=== PATIENT | male | born 1995 | race Caucasian/White ===

== ENCOUNTER 2023-01-11 08:02 | Emergency (ER) | payer OTHER, SELFPAY ==
--- NOTE | ~2023-01-11 | XR_ITS ---
XR lumbar spine 2-3V DATE: 01/11/2023 08:33 INDICATION: Low back pain after doing squats in gym TECHNIQUE: AP, lateral, coned lateral lumbosacral views COMPARISON: None FINDINGS: Normal alignment of the lumbar spine. No fracture or bone destruction or spondylolisthesis. The lumbar pedicles are intact. Lumbar and lumbosacral interspaces appear well preserved. The sacroi liac joints are intact. IMPRESSION: No significant abnormality Reviewed, dictated and finalized at location A. [employer] IMPRESSION: No significant abnormality
--- NOTE | 2023-01-11 08:10 | ED.BACK ---
HPI - Back Pain/Injury General Chief Complaint: Back Pain/Injury Stated Complaint: LOW BACK PAIN Time Seen by Provider: 01/11/23 08:18 Source: patient, RN notes reviewed and old records reviewed Mode of arrival: ambulatory Limitations: no limitations History of Present Illness HPI Narrative: 27 year old male who presents to [facility] care with complaints of low back pain which began yesterday after he was doing a squat at the gym yesterday. Patient reports that he felt a sharp burn to his lower back at that time. He reports no radiation of pain to his legs, no problems passing urine or stools, no saddle paraesthesia, denies any tingling or numbness to his legs or feet. Patient does have some low back midline tenderness on palpation, no SI pain noted on exam.patient has been taking Aleve with minimal decrease in his pain, last dose this morning around 0700. MD elicited complaint: back pain Onset (ago): day(s) (yesterday) Pain scale (0-10): 8 Similar Symptoms Previously: No Quality: sharp and dull Location: lumbar spine Work related injury: No Related Data Allergies Allergy/AdvReac Type Severity Reaction Status Date / Time sweet potato Allergy Other Verified 01/11/23 08:14 Review of Systems Review of Systems: CONSTITUTIONAL: Denies fever, chills, or sweats. CARDIOVASCULAR: Denies chest pain, palpitations, or edema. RESPIRATORY: Denies cough or dyspnea. GASTROINTESTINAL: Denies abdominal pain, nausea, vomiting, or diarrhea. GENITOURINARY: Denies dysuria or hematuria. SKIN: Denies rash or itching. MUSCULOSKELETAL: Reports lumbar back pain. Joint pain or myalgia. NEUROLOGIC: Denies headache, numbness, or weakness. All systems reviewed & are unremarkable except as noted in HPI and below [facility] Surgical History Surgical History (Updated 01/11/23 @ 08:18 by Eva Gilliam NP) History of tonsillectomy Social History Social History (Updated 01/11/23 @ 08:28 by Eva Gilliam NP) Smoking status: Never smoker Alcohol intake: current Alcohol use details: social Substance use type: does not use Living arrangements: alone Gender identity (if verbalized by the patient): Male Comments At time of signature, agree with nursing past medical, surgical, social and family history. There is no relevant family history pertinent to the presenting complaint Exam Narrative: GENERAL: Well-appearing, well-nourished, and in no acute distress. HEAD: Normocephalic, atraumatic. EYES: PERRLA and EOMI. NECK: Supple. No lymphadenopathy. CHEST: Clear to auscultation. No respiratory distress. HEART: Regular rate and rhythm. Distal pulses palpable and equal, cap refill <3 seconds ABDOMEN: Soft, nontender, nondistended, normal active bowel sounds, no palpable or pulsatile masses. No CVA tenderness MUSCULOSKELETAL: Normal range of motion and strength in all extremities; 5/5 strength with hip flexion and extension, dorsiflexion and extension, knee flexion and extension, plantar flexion and extension. Normal sensation in dermatomal distributions with sensitivity to light touch and pain. Noted midline lumbar back tenderness to palpation. No paraspinal tenderness. Transfers from lying to sitting to standing with some discomfort voiced when changing positions. SKIN: Warm, dry, no rash. No ecchymosis, erythema, open wounds to back. NEURO: No focal deficits. Alert and oriented x3. Reflexes intact. Normal gait. PSYCH: Normal mood and affect Course Course Emergency Course: Patient is aware of diagnosis, understands and agrees to treatment plan. Anticipatory guidance given. Patient agrees to follow-up as directed and is aware of reasons to seek care at the emergency department. Portions of this record may have been created with voice recognition software Level of Care: Express Care Visit Vital Signs Vital signs: Vital Signs Temperature 36.6 C 01/11/23 08:12 Pulse Rate 94 01/11/23 08:12 Respiratory Rate 16 02
[2023-01-11 08:12] VITALS: BP 146/105; PULSE 94; RESP 16; TEMP 36.6; O2SAT 100
== END 2023-01-11 08:55 | disposition home or self-care (01) ==
PROVIDERS: Emergency Provider Registered Nurse; PCP Internal Medicine
DX: S39.012A Strain of muscle, fascia and tendon of lower back, initial encounter (principal); X50.9XXA Other and unspecified overexertion or strenuous movements or postures, initial encounter; Y92.39 Other specified sports and athletic area as the place of occurrence of the external cause
CPT/HCPCS: 72100; 99203; G0463

== ENCOUNTER 2024-10-15 17:47 | Emergency (ER) | payer OTHER, SELFPAY ==
[2024-10-15 17:53] VITALS: BP 136/92; PULSE 97; RESP 16; TEMP 36.6; O2SAT 99
--- NOTE | 2024-10-15 17:59 | ED_ITS ---
HPI - Skin/Abscess/Foreign Bdy General Chief complaint: Skin/Abscess/Foreign Body Stated complaint: Ingrown Hair Time Seen by Provider: 10/15/24 17:59 Source: patient Mode of arrival: ambulatory Limitations: no limitations History of Present Illness HPI narrative: 29 yo M presents with redness and swelling to suprapubic area. Draining. Has been applying PRID for about 4 days. afebrile. Uses electric razor to shave pubic hair. Has been doing this for my whole life . Has never had infection. All systems reviewed and negative except as noted above. Related Data Allergies Allergy/AdvReac Type Severity Reaction Status Date / Time sweet potato Allergy Other Verified 10/15/24 17:59 Review of Systems Review of Systems: CONSTITUTIONAL: Denies fever, chills, or sweats. EYES: Denies visual changes, redness, or discharge. ENT: Denies rhinorrhea, congestion, sore throat, or otalgia. CARDIOVASCULAR: Denies chest pain, palpitations, or edema. RESPIRATORY: Denies cough or dyspnea. GASTROINTESTINAL: Denies abdominal pain, nausea, vomiting, or diarrhea. GENITOURINARY: Denies dysuria or hematuria. SKIN: Denies rash or itching. Reports swelling, pain, redness to pubic area. MUSCULOSKELETAL: Denies back pain, joint pain, or myalgia. NEUROLOGIC: Denies headache, numbness, or weakness. PSYCHIATRIC: Denies anxiety or depression. All other systems reviewed are negative, except as documented in HPI. [facility] Surgical History Surgical History (Updated 01/11/23 @ 08:18 by Eva Gilliam NP) History of tonsillectomy Social History Social History (Updated 01/11/23 @ 08:28 by Eva Gilliam NP) Smoking status: Never smoker Alcohol intake: current Alcohol use details: social Substance use type: does not use Living arrangements: alone Gender identity (if verbalized by the patient): Male Comments At time of signature, agree with nursing past medical, surgical, social and family history. There is no relevant family history pertinent to the presenting complaint. Exam Narrative: GENERAL: This is a well-nourished, well-developed patient, in no apparent distress. HEAD: normocephalic, atraumatic. EYES: PERRL. Sclera clear/white. Vision is grossly intact. EARS: External ears normal NOSE: External nose normal NECK: Neck supple, non-tender without lymphadenopathy, masses or thyromegaly. CARDIOVASCULAR: Regular rate and rhythm without murmurs, gallops, or rubs. RESPIRATORY: Clear to auscultation. Breath sounds equal bilaterally. No wheezes, rales, or rhonchi. SKIN: warm, Dry, intact with no suspicious lesions or rash, good texture and turgor. Abscess to suprapubic area approximately 3 x 4 cm. Erythematous, indurated, purulent drainage. NEURO: awake, alert, and oriented to person, place and time. There were no obvious focal neurologic abnormalities. EXTREMITIES: No joint tenderness, effusion, or edema noted. Course Course Level of Care: Express Care Visit Vital Signs Vital signs: Vital Signs Temperature 36.6 C 10/15/24 17:53 Pulse Rate 97 10/15/24 17:53 Respiratory Rate 16 10/15/24 17:53 Blood Pressure 136/92 H 10/15/24 17:53 Pulse Oximetry 99 10/15/24 17:53 Temperature 36.6 C 10/15/24 17:53 Pulse Rate 97 10/15/24 17:53 Respiratory Rate 16 10/15/24 17:53 Blood Pressure 136/92 H 10/15/24 17:53 Pulse Oximetry 99 10/15/24 17:53 Reviewed MDM - Skin/Abscess/Foreign Bdy MDM Narrative Medical decision making narrative: Patient has draining abscess to suprapubic area. Wound culture obtained. Will prescribe clindamycin. Recommend patient wash twice a day with soap and water, continue warm compresses. Patient is aware of diagnosis, understands and agrees to treatment plan. Anticipatory guidance given. Patient agrees to follow-up as directed and is aware of reasons to seek care at the emergency department. Portions of this record may have been created with voice recognition software Discharge Plan Discharge Clinical Impression: Soft tissue abscess of suprapubic region Patient Disposition: Home, Self-Care Condition: Stable Instructions: Antibiotic Form, Abscess (ED) Additional Instructions: Take antibiotic as prescribed until gone. Take antibiotic with full glass of water. Take ibuprofen every 6-8 hours as needed for pain. Apply a warm compress for 10-15 minutes 4 times a day. A wound culture was ordered today. Results will take 48-72 hours. We will call you if we need to make a change to her antibiotic. Follow-up with your primary care physician in 1 week. Prescriptions: New clindamycin HCl 300 mg capsule 300 mg PO Q8H 7 Days Qty: 21 0RF Follow-up/Referrals: PHYSICIAN,JEWEL BEARING FACER [Primary Care Provider] - Time of Disposition: 18:09
== END 2024-10-15 18:12 | disposition home or self-care (01) ==
PROVIDERS: Emergency Provider Nurse Practitioner Family
DX: L02.211 Cutaneous abscess of abdominal wall (principal)
CPT/HCPCS: 87070; 87075; 87181; 87205; 99213; G0463